=== PATIENT | male | born 1980 | race Caucasian/White ===

== ENCOUNTER 2017-07-15 14:24 | Observation (INO) ==
[2017-07-15 15:28] LABS: Bilirubin,Urine Negative (Negative); Blood,Urine Negative (Negative); Clarity,Urine Clear (Clear); Color,Urine Yellow (Yellow); Glucose,Urine (UA) Normal (Normal); Ketones,Urine Negative (Negative); Leukocyte Esterase,Urine Negative (Negative); Nitrite,Urine Negative (Negative); PH,Urine 7.5 pH Units (5.0-8.0); Protein,Urine Negative (Neg-Trace); Specific Gravity,Urine 1.022 (1.010-1.025); Urobilinogen,Urine Normal (Normal)
[2017-07-15 15:40] LABS: Basophils # 0.1 K/mcL (0.0-0.2); Basophils % 0.8 %; Eosinophils # 0.2 K/mcL (0.0-0.6); Eosinophils % 1.5 %; Hematocrit 36.9 % (37.5-50.1); Hemoglobin 12.4 g/dL (12.9-16.9); Immature Granulocytes % 0.3 % (0-4); Lymphocytes # 1.5 K/mcL (0.6-4.6); Mean Corpuscular HGB Conc 33.6 g/dL (31.6-35.5); Mean Corpuscular Hemoglobin 31.1 pg (28.0-33.3); Mean Corpuscular Volume 92.5 fL (83.0-100.0); Mean Platelet Volume 12.2 fL (9.4-12.4); Monocytes # 0.7 K/mcL (0.0-1.3); Platelet Count 157 K/mcL (140-400); Red Blood Count 3.99 M/mcL (4.19-5.50); Red Cell Distribution Width 13.2 % (11.5-14.5); Segmented Neutrophils % 78.4 %
[2017-07-15 15:56] LABS: Alanine Aminotransferase 17 Units/L (0-55); Albumin 3.9 g/dL (3.5-5.0); Albumin/Globulin Ratio 1.1 (1.1-2.2); Alkaline Phosphatase 58 Units/L (38-126); Aspartate Amino Transferase 25 Units/L (5-34); BUN/Creatinine Ratio 15 (6-26); Bilirubin,Direct 0.1 mg/dL (0.0-0.5); Bilirubin,Indirect 0.3 mg/dL (0.0-1.2); Bilirubin,Total 0.4 mg/dL (0.2-1.2); Blood Urea Nitrogen 23 mg/dL (8-26); Calcium 9.5 mg/dL (8.6-10.8); Carbon Dioxide 23 mEq/L (19-29); Chloride 108 mEq/L (98-109); Globulin 3.6 g/dL (2.4-3.5); Glucose 75 mg/dL (70-99); Lipase 51 Units/L (8-78); Osmolality,Calculated 294 (280-300); Potassium 5.4 mEq/L (3.5-4.5); Sodium 141 mEq/L (136-145); Total Protein 7.5 g/dL (6.0-8.3); eGFR For African Americans > 60 (> 60); eGFR For Non-African Americans 50 (> 60)
--- NOTE | 2017-07-15 17:09 | Emergency Department Note ---
Disposition Clinical Impression: Acute appendicitis Disposition: Admitted As Inpatient Condition: Good Forms: ED Satisfaction Letter, Work/School Release Time of Disposition: 19:13 Abdominal Pain HPI - General Chief Complaint: ED Abdominal Pain Stated Complaint: RLQ pain Time Seen by Provider: 07/15/17 17:08 Source: patient Mode of arrival: ambulatory Limitations: no limitations Nursing Notes Reviewed: Yes Vital Signs Reviewed: Yes - History of Present Illness HPI Narrative: This is a 36-year-old male who presents with right lower quadrant pain starting yesterday. Patient states some loose stools but no obvious diarrhea. Patient denies any black or bloody stools. Patient states nausea but no vomiting. Patient states he was sent here from work due to a rule out appendicitis. Patient states he has never had any abdominal surgeries. Patient states he is not running fevers. Patient has no chest pain or shortness of breath. Pt Subjective Complaint: abdominal pain Onset (ago): day(s) Consistency: constant Location: RLQ Pain Severity: moderate Pain Scale: 7 - Related Data Allergies Allergy/AdvReac Type Severity Reaction Status Date / Time Sulfa (Sulfonamide Allergy Anaphylaxis Verified 07/15/17 14:30 Antibiotics) All systems ED: reviewed and negative except as stated. Constitutional: Denies: fever, chills, weakness, weight change Eyes: Denies: eye pain, eye discharge, vision change ENT ED: Denies: ear pain, throat pain, dental pain, hearing loss, epistaxis, congestion, dysphagia Cardiovascular: Denies: chest pain, palpitations, dyspnea on exertion, edema, syncope Respiratory: Denies: cough, dyspnea, wheezes, hemoptysis, stridor Gastrointestinal: Reports: abdominal pain, nausea. Denies: vomiting, diarrhea, constipation, hematemesis, melena, hematochezia Genitourinary: Denies: urgency, dysuria, frequency, hematuria Musculoskeletal: Denies: back pain, neck pain, arthralgia, myalgia Integumentary: Denies: rash, abrasion, lesions Neurological: Denies: headache, weakness, numbness, paresthesias, confusion, abnormal gait, vertigo Psychiatric: Denies: anxiety, depression, suicidal thoughts, homicidal thoughts , auditory hallucinations, visual hallucinations Endocrine: Denies: fatigue Hematological/Lymphatic: Denies: easy bleeding, easy bruising Allergic/Immunologic: Denies: facial swelling, urticaria Abdominal Pain PMH - Past Medical History Medical history: Reports: no medical history Male Surgical History: Reports: no surgical history Psychiatric history: Reports: no psych history - Social History Smoking status: Never smoker Alcohol use: Reports: rarely Drug use: Reports: none Physical Exam - General Limitations: no limitations General appearance: alert, in no apparent distress - Head Head exam: atraumatic, normocephalic, normal inspection - Eye Eye exam: Present: normal appearance, PERRL, EOMI - ENT ENT exam: normal exam, normal oropharynx, mucous membranes moist - Expanded ENT Exam External ear exam: Present: normal external inspection Mouth exam: Present: normal external inspection Teeth exam: Present: normal inspection Throat exam: Present: normal inspection - Neck Neck exam: Present: normal inspection, full ROM, trachea midline - Chest Chest inspection: Present: normal inspection, symmetric chest wall rise - Respiratory Respiratory exam: Present: normal lung sounds bilaterally - Cardiovascular Cardiovascular exam: Present: regular rate, normal rhythm, normal heart sounds - Abdominal Exam Abdominal exam: Present: soft, tenderness, tenderness at McBurney's Point. Absent: distention, guarding, rebound, rigidity Abdominal tenderness: Present: RLQ - Extremities Exam Extremities exam: Present: normal inspection, full ROM. Absent: tenderness, pedal edema - Expanded Upper Extremity Exam Shoulder exam: Present: normal inspection, full ROM Arm exam: Present: normal inspection, full ROM Elbow exam: Present: normal inspection, full ROM Forearm/Wrist exam: Present: normal inspection, full ROM Hand exam: Present: normal inspection, full ROM Vascular exam: Normal: capillary refill, radial pulse - Expanded Lower Extremity Exam Hip/Pelvis exam: Present: normal inspection, full ROM Upper leg exam: Present: normal inspection, full ROM Knee exam: Present: normal inspection, full ROM Lower leg exam: Present: normal inspection, full ROM Ankle exam: Present: normal inspection, full ROM Foot/toe exam: Present: normal inspection, full ROM Neurovascular/Tendon exam: Absent: motor deficit, sensory deficit, tendon deficit - Back Exam Back exam: Present: normal inspection, full ROM. Absent: tenderness - Neurological Exam Neurological exam: Present: alert, oriented X3 - Expanded Neurological Exam Patient oriented to: Present: person, place, time Coma Scale Eye Opening: Spontaneous Coma Scale Motor Response: Obeys Commands Coma Scale Verbal Response: Oriented Coma Scale Total: 15 - Psychiatric Psychiatric exam: Present: normal affect, normal mood - Skin Skin exam: Present: warm, dry, intact, normal color Course - Consultations Consultation #1: I spoke with Dr. Salvador yun to admit. 19:12. Vital Signs Temperature 97.8 F 07/15/17 14:27 Pulse Rate 84 07/15/17 14:27 Respiratory Rate 18 07/15/17 14:27 Blood Pressure 130/87 07/15/17 14:27 O2 Sat by Pulse Oximetry 94 07/15/17 14:27 Temperature 97.8 F 07/15/17 14:27 Pulse Rate 84 07/15/17 14:27 Respiratory Rate 18 07/15/17 14:27 Blood Pressure 130/87 07/15/17 14:27 O2 Sat by Pulse Oximetry 94 07/15/17 14:27 Oxygen Delivery Oxygen Delivery Room Air Abdominal Pain - Medical Records Medical records reviewed: Yes I reviewed the patient's medical records. - Lab Data Lab results reviewed: Yes I reviewed the patient's lab results. Result diagrams: 07/15/17 15:28 07/15/17 15:28 Lab Results 07/15/17 07/15/17 07/15/17 Range/Units 15:08 15:28 15:28 WBC 11.5 H (4.3-11.1) K/mcL RBC 3.99 L (4.19-5.50) M/mcL Hgb 12.4 L (12.9-16.9) g/dL Hct 36.9 L (37.5-50.1) % MCV 92.5 (83.0-100.0) fL MCH 31.1 (28.0-33.3) pg MCHC 33.6 (31.6-35.5) g/dL RDW 13.2 (11.5-14.5) % Plt Count 157 (140-400) K/mcL MPV 12.2 (9.4-12.4) fL Immature Gran % 0.3 (0-4) % Seg Neutrophils % 78.4 % Lymphocytes % 13.0 % Monocytes % 6.0 % Eosinophils % 1.5 % Basophils % 0.8 % Neutrophils # 9.0 H (1.6-8.9) K/mcL Lymphocytes # 1.5 (0.6-4.6) K/mcL Monocytes # 0.7 (0.0-1.3) K/mcL Eosinophils # 0.2 (0.0-0.6) K/mcL Basophils # 0.1 (0.0-0.2) K/mcL Sodium 141 (136-145) mEq/L Potassium 5.4 H (3.5-4.5) mEq/L Chloride 108 (98-109) mEq/L Carbon Dioxide 23 (19-29) mEq/L BUN 23 (8-26) mg/dL Creatinine 1.57 H (0.72-1.25) mg/dL Est GFR ( Amer) > 60 (> 60) Est GFR (Non-Af Amer) 50 L (> 60) BUN/Creatinine Ratio 15 (6-26) Glucose 75 (70-99) mg/dL Calculated Osmolality 294 (280-300) Calcium 9.5 (8.6-10.8) mg/dL Total Bilirubin 0.4 (0.2-1.2) mg/dL Direct Bilirubin 0.1 (0.0-0.5) mg/dL Indirect Bilirubin 0.3 (0.0-1.2) mg/dL AST 25 (5-34) Units/L ALT 17 (0-55) Units/L Alkaline Phosphatase 58 (38-126) Units/L Serum Total Protein 7.5 (6.0-8.3) g/dL Albumin 3.9 (3.5-5.0) g/dL Globulin 3.6 H (2.4-3.5) g/dL Albumin/Globulin Ratio 1.1 (1.1-2.2) Lipase 51 (8-78) Units/L Urine Color Yellow (Yellow) Urine Clarity Clear (Clear) Urine pH 7.5 (5.0-8.0) pH Units Ur Specific [place] 1.022 (1.010-1.025) Urine Protein Negative (Neg-Trace) mg/dL Urine Glucose (UA) Normal (Normal) mg/dL Urine Ketones Negative (Negative) mg/dL Urine Blood Negative (Negative) Urine Nitrite Negative (Negative) Urine Bilirubin Negative (Negative) Urine Urobilinogen Normal (Normal) mg/dL Ur Leukocyte Esterase Negative (Negative) - Radiology Data Radiology results reviewed: Yes I reviewed the patient's radiology results.
[2017-07-15] MEDS ORDERED: 0.9 % Sodium Chloride 2,000 ML IV SCH (17:15)
[2017-07-15] MEDS ORDERED: 0.9 % Sodium Chloride 1,000 ML ONE (18:08)
[2017-07-15] MEDS: 0.9 % Sodium Chloride 1,000 ML IV SCH (18:09)
[2017-07-15] MEDS ORDERED: Piperacillin/Tazobactam 3.375 GM in D5% in Water 50 ML IVPB ONE (19:13)
[2017-07-15] MEDS ORDERED: *HR* FentaNYL (PF) 100 MCG/2 ML VIAL ONE (19:45)
[2017-07-15] MEDS ORDERED: *HR* Propofol 200 MG/20 ML VIAL IVP ONE (19:45)
[2017-07-15] MEDS ORDERED: Dexamethasone 4 MG/ML VIAL ONE (19:46)
[2017-07-15] MEDS ORDERED: Ondansetron 4 MG/2 ML VIAL ONE (19:46)
[2017-07-15] MEDS ORDERED: Lidocaine -MPF 2% 2 ML VIAL ONE (19:46)
[2017-07-15] MEDS ORDERED: *HR* Succinylcholine 200 MG/10 ML VIAL IVP ONE (19:46)
--- NOTE | 2017-07-15 19:58 | General Surg History&Physical ---
Date of Encounter: 07/15/17 Time of Encounter: 19:30 Assessment and Plan (1) Acute appendicitis Current Visit: Yes Status: Acute The assessment and plan as outlined above was discussed with the patient and/or family members who expressed understanding and agreement. All questions were answered. I discussed the findings of acute appendicitis with the patient and his . Recommended laparoscopic appendectomy on an urgent basis. He understands this and wishes to proceed. We will perform laparoscopic appendectomy as soon as a room becomes available Qualifiers: Acute appendicitis type: with localized peritonitis Qualified Code(s): K35.3 - Acute appendicitis with localized peritonitis History of Present Illness Chief complaint: Abdominal pain HPI: Mr. Davidson is a 36 year old male Developed central abdominal pain earlier today. The pain worsened throughout the day and localized to the right lower quadrant. He had no nausea or vomiting. He had no episodes of diarrhea. There were no episodes of shakes chills or fever. He does have pain with motion. He does have anorexia. He sought evaluation in the emergency department. CAT scan was suggestive of early appendicitis. I personally reviewed the CAT scan images and I feel that the diagnosis of appendicitis is likely. The appendix is swollen with periappendiceal inflammation. He now presents for urgent laparoscopic appendectomy Past Med Surg Social Fam HX - Past Medical History Medical history: no medical history Psychiatric history: no psych history - Social History Smoking Status: Never smoker Smokeless Tobacco Status: No Alcohol use: rarely Drug use: none Medications and Allergies Fexofenadine HCl [Fexofenadine HCl] 180 mg PO DAILY 07/15/17 [History] Mometasone Furoate [Nasonex] 1 spray NS DAILY 07/15/17 [History] 3 Allergy/AdvReac Type Severity Reaction Status Date / Time Sulfa (Sulfonamide Allergy Anaphylaxis Verified 07/15/17 14:30 Antibiotics) Review of Systems All systems PM: A 10-system review of systems was performed and is negative for pertinent findings except as documented above in the HPI. General Surgery Exam Initial Vital Signs Temp Pulse Resp BP Pulse Ox 97.8 F 84 18 130/87 94 07/15/17 14:27 07/15/17 14:27 07/15/17 14:27 07/15/17 14:27 07/15/17 14:27 - General physical appearance well developed, well nourished, no distress - Neck no masses, no bruits, trachea midline, no lymphadectomy, no venous distension - Respiratory normal expansion, normal respiratory effort, clear to percussion, clear to auscultation - Cardiovascular Cardiovascular exam: Present: RRR, 15, 16 - Abdomen Abdomen general surgery: Present: tender, guarding, rebound Abdominal Tenderness: Present: RLQ - Neurologic Present: CN 2-12 grossly intact, normal coordination, normal sensation - Psychiatric Psychiatric general surgery: Present: appropriate, oriented to person, oriented to place, oriented to time, speech is normal, memory intact Results - Labs 07/15/17 15:28 07/15/17 15: Abnormal lab results WBC 11.5 K/mcL (4.3-11.1) H 07/15/17 15: RBC 3.99 M/mcL (4.19-5.50) L 07/15/17 15: Hgb 12.4 g/dL (12.9-16.9) L 07/15/17 15: Hct 36.9 % (37.5-50.1) L 07/15/17 15: Neutrophils # 9.0 K/mcL (1.6-8.9) H 07/15/17 15: Potassium 5.4 mEq/L (3.5-4.5) H 07/15/17 15:28 Creatinine 1.57 mg/dL (0.72-1.25) H 07/15/17 15:28 Est GFR (Non-Af Amer) 50 (> 60) L 07/15/17 15: Globulin 3.6 g/dL (2.4-3.5) H 07/15/17 15:28 All other labs normal. - Imaging CT scan - abdomen: image reviewed (I personally reviewed the CAT scan the abdomen. The patient has periappendiceal inflammation as well as a swollen appendix. Findings are consistent with acute appendicitis)
[2017-07-15] MEDS ORDERED: *HR* Labetalol 20 MG/4 ML SYRINGE IVP PRN (20:01)
[2017-07-15] MEDS ORDERED: Ondansetron 4 MG/2 ML VIAL IVP ONE (20:01)
[2017-07-15] MEDS ORDERED: Albuterol 2.5 MG/3 ML NEBULIZER IH ONE (20:01)
[2017-07-15] MEDS ORDERED: *HR* Promethazine 25 MG/ML VIAL IVP PRN (20:01)
[2017-07-15] MEDS ORDERED: *HR* HYDROmorphone (PF) 1 MG/ML SYRINGE IVP PRN ×2 (20:01→23:19)
--- NOTE | 2017-07-15 20:01 | Anesthesia Evaluation PreOp ---
Date of Encounter: 07/15/17 Time of Encounter: 20:00 - Past History Planned Operation: Lap. 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 Significant HX Other Medical History: Denies Any Significant HX Anesthesia History: No Prior Anesthetic Complications, Past Anesthesia (wisdom teeth) Alcohol Use: rarely Drug use: none Medications and Allergies Fexofenadine HCl [Fexofenadine HCl] 180 mg PO DAILY 07/15/17 [History] Mometasone Furoate [Nasonex] 1 spray NS DAILY 07/15/17 [History] 3 Allergy/AdvReac Type Severity Reaction Status Date / Time Sulfa (Sulfonamide Allergy Anaphylaxis Verified 07/15/17 14:30 Antibiotics) - Meds/Allergy Pre-op Review Medications Reviewed: Yes Allergies Reviewed: Yes Beta Blockers on Current Med List: No Anesthesia Results - Labs 07/15/17 15:28 07/15/17 15:28 Anesthesia Exam O2 Sat Height 1.85 m Weight 92.986 kg O2 Sat by Pulse Oximetry 97 O2 Sat by Pulse Oximetry 94 Vital Signs Temp Pulse Resp BP Pulse Ox 97.8 F 84 18 130/87 94 07/15/17 14:27 07/15/17 14:27 07/15/17 14:27 07/15/17 14:27 07/15/17 14:27 Vital Signs/O2 Sat, Most Current Temp Pulse Resp BP Pulse Ox 97.8 F 71 16 127/88 97 07/15/17 14:27 07/15/17 19:54 07/15/17 19:54 07/15/17 19:54 07/15/17 19:54 Height: 6'1'' Weight: 205# NPO (# of Hours): > 8 hrs Pain Scale: 0 Pain Scale Used: Numeric (1 - 10) - HEENT Pupil (Motor): Pupils equal, EOMI Mallampati: I Teeth: Normal Oral Opening: Greater than 3 - TYING IN MACHINE OPERATOR LOC: Oriented TYING IN MACHINE OPERATOR Motor: Normal RUE, Normal LUE, Normal RLE, Normal LLE, Normal Face TYING IN MACHINE OPERATOR Sensory: Normal: RUE, LUE, RLE, LLE, Face - Cardiac Rhythm: Regular Murmur: None JVD: No Carotid Bruit: No - Pulmonary Breath Sounds: bilateral Clear Respiratory Effort: Symmetrical Anesthesia Assess/Plan ASA Score: 1 Modified [place] Scale for Level of Consciousness: Cooperative, oriented, and tranquil Anesthetic Plan: General Autologous Blood: Yes Monitoring Plan: Standard Monitors Recovery Plan: PACU
[2017-07-15] MEDS ORDERED: CefOXitin 1,000 MG VIAL ONE (21:16)
[2017-07-15] MEDS ORDERED: Neostigmine Methylsulfate 3 MG/3 ML SYRINGE ONE (22:07)
--- NOTE | 2017-07-15 22:23 | Operative Note ---
Date of procedure: 07/15/17 Pre-op diagnosis: Acute appendicitis Post-op diagnosis: same Procedure: Laparoscopic appendectomy Anesthesia: CATHERINE Surgeon: Blaze Franco Estimated blood loss (cc): 10 Specimen: Appendix Condition: stable Disposition: PACU Procedure in Detail: After informed consent the patient was taken to the major operating suite. He is placed in the supine position. Timeout was taken and the patient is identified. Patient was given adequate general anesthetic. The abdomen is prepped and draped in sterile fashion utilizing ChloraPrep standard draping techniques. Timeout was taken patient was identified. I made a vertical midline incision below the umbilicus and placed 2 traction stitches of 0 Vicryl. The abdomen was entered visually. I placed a Bullock trocar. The abdomen was insufflated to 15 mmHg pressure CO2. There were inflammatory changes on the peritoneum in the right lower quadrant. I placed a 5 mm port in the suprapubic area. I placed a 12 mm port in the right upper quadrant. The appendix was acutely inflamed. The appendix was mobilized on the mesial appendix. I created a window between the mesial appendix and base of the cecum. I divided the base of the cecum with a gastrointestinal staple load from the laparoscopic stapler. The appendix was now isolated on the meso appendix. Mesoappendix was divided with the vascular stapler. Hemostasis was excellent. I irrigated with copious amounts of antibiotic containing solution. All staple lines were intact. All trochars were removed. There was no free pus or stool in the abdomen. The appendix was not perforated. Fascia was closed with 0 Vicryl and the skin with 2-0 and 4-0 Vicryl.
--- NOTE | 2017-07-15 23:02 | Anesthesia Evaluation Post Op ---
Date of Encounter: 07/15/17 Time of Encounter: 23:02 - Vital Signs Vital Signs: Vital Signs/O2 Sat, Most Current Temp Pulse Resp BP Pulse Ox 98.4 F 44 16 124/75 95 07/15/17 22:54 07/15/17 22:54 07/15/17 22:54 07/15/17 22:54 07/15/17 22:54 - Lungs Lungs: Clear Ascult./Percussion - Airway Airway: Non-obstructed - Cardiovascular Regular Rate - Mental Status Mental Status: Alert & Oriented, Answers Appropriately - Pain Pain Scale: 4 Pain Scale used: Numeric (1 - 10) - Nausea Vomiting Nausea Vomiting: Not Present - Hydration Hydration: Tolerates oral liquids, Has not voided - Discharge PostOp Status: Transfer Patient to floor
[2017-07-15] MEDS ORDERED: Ondansetron 4 MG/2 ML VIAL IVP PRN (23:19)
[2017-07-15] MEDS ORDERED: 0.9 % Sodium Chloride 1,000 ML IVC SCH (23:19)
[2017-07-16] MEDS: 0.9 % Sodium Chloride 1,000 ML IV SCH (01:16)
[2017-07-16] MEDS: *HR* OxyCODONE/APAP 5/325 TABLET PO PRN ×2 (01:34→06:27)
[2017-07-16] MEDS: Piperacillin/Tazobactam 3.375 GM in D5% in Water 50 ML IVPB SCH ×2 (04:12→11:38)
--- NOTE | 2017-07-16 09:34 | Discharge Summary ---
<Nikkie Toney - Last Filed: 07/16/17 14:59> Date of Encounter: 07/16/17 Time of Encounter: 09:15 - Discharge Diagnosis (1) Acute appendicitis Priority: Primary Status: Resolved Qualifiers: Acute appendicitis type: with localized peritonitis Qualified Code(s): K35.3 - Acute appendicitis with localized peritonitis - Discharge Medications Prescriptions: OxyCODONE/APAP 5/325 [Percocet 5/325 MG] 1 each PO Q6HR PRN #28 tablet PRN Reason: Pain (1-5) Docusate Sodium [Colace] 100 mg PO BID PRN #30 capsule PRN Reason: Constipation Ibuprofen 800 mg PO Q8H #60 tablet Home Medications: Fexofenadine HCl 180 mg PO DAILY 07/15/17 [History] Mometasone Furoate [Nasonex] 1 spray NS DAILY 07/15/17 [History] Docusate Sodium [Colace] 100 mg PO BID PRN #30 capsule 07/16/17 [Rx] Ibuprofen 800 mg PO Q8H #60 tablet 07/16/17 [Rx] OxyCODONE/APAP 5/325 [Percocet 5/325 MG] 1 each PO Q6HR PRN #28 tablet 07/16/17 [Rx] Allergies/Adverse Reactions: 3 Allergy/AdvReac Type Severity Reaction Status Date / Time Sulfa (Sulfonamide Allergy Anaphylaxis Verified 07/15/17 14:30 Antibiotics) General Surgery Exam Initial Vital Signs Temp Pulse Resp BP Pulse Ox 97.8 F 84 18 130/87 94 07/15/17 14:27 07/15/17 14:27 07/15/17 14:27 07/15/17 14:27 07/15/17 14:27 - General physical appearance well developed, well nourished, no distress - Eyes normal ocular movement - ENT normal mucosa, atraumatic, normocephalic - Neck trachea midline, no venous distension - Respiratory normal expansion, normal respiratory effort, clear to auscultation - Cardiovascular Cardiovascular exam: Present: RRR - Abdomen Abdomen general surgery: Present: bowel sounds present, soft, tender (Expected postoperative) - Incision Incision: Present: clean and dry, intact - Integumentary Integumentary general surgery: Present: warm and dry, no abnormal pigmentation - Neurologic Present: CN 2-12 grossly intact, normal coordination, normal sensation - Musculoskeletal Present: normal gait, normal posture - Psychiatric Psychiatric general surgery: Present: appropriate, oriented to person, oriented to place, oriented to time, speech is normal, memory intact Date of admission: 07/15/17 19:30 Primary care physician: PCP NONE Discharging clinician: Blaze Toney) Anticipated date of discharge: 07/16/17 - Patient Status Disposition: Home, Self-Care Condition: Good Functional capacity at discharge: independent ambulation Overall status at discharge: patient is progressing back to baseline - Discharge Instructions Instructions: Laparoscopic Appendectomy (DC) Follow Up With: NONE,PCP [Primary Care Provider] - Kylah Choe CAN CLEANER [Advanced Practice Nurse] - 08/05/17 8:45 am Forms: Inpatient Work/School Release Additional Instructions: General Surgical Discharge Instructions 1. No pushing, pulling, or lifting greater than 15 lbs for two weeks. 2. You may shower beginning today, but no tub baths, soaking, or swimming for 2 weeks. 3. You may resume driving when you are off narcotics and are safe to react in a car. 4. Take ibuprofen every 8 hours for discomfort. If this does not adequately receive your discomfort, you may take oxycodone. Take narcotics as directed. Do not take more narcotics then directed and do not share your narcotics with any other person. Do not drink alcohol while on narcotics. 5. Take stool softeners (Colace) or a water based laxative (Miralax) while taking narcotics. You may hold for loose stools. 6. Report any fevers greater than 100.5F, increase abdominal discomfort, drainage that looks like pus, increased redness or pain at the surgical site, or any vomiting. 7. Report any pain in the calves, shortness of breath, or rapid heartbeat. 8. Follow-up in the office as directed. 9. If you were prescribed antibiotics, do not stop them without talking to your provider. - Diet and Activity Activity: increase activity as tolerated Diet: advance to your usual diet - Hospital Course Hospital course: Mr. Davidson is a 36 year old male presented on 07/15/2017 for complaints of centralized abdominal discomfort that developed earlier in that day. The pain worsened throughout the day and then localized to the right lower quadrant. It was not associated with nausea or vomiting nor diarrhea. He denied fevers or chills. It was aggravated by motion and associated with anorexia. A CT scan was suggestive of early appendicitis and he was therefore taken to the operating room where he underwent an uncomplicated laparoscopic appendectomy with Dr. Franco. The remainder of this hospital course has been unremarkable. He states resolution of his pre-surgical discomfort, is ambulating and voiding without difficulty, is tolerating liquids without nausea or vomiting, and his discomfort is controlled on the current regimen. His vital signs are stable and he is afebrile. We will begin discharge planning within office follow-up in 2 weeks. - Time Spent with Patient Total time spent providing and/or coordinating discharge services: Less than 30 minutes <Blaze Franco - Last Filed: 07/16/17 15:55> Date of Encounter: 07/16/17 - Discharge Diagnosis (1) Acute appendicitis Status: Resolved Qualifiers: Acute appendicitis type: with localized peritonitis Qualified Code(s): K35.3 - Acute appendicitis with localized peritonitis General Surgery Exam Initial Vital Signs Temp Pulse Resp BP Pulse Ox 97.8 F 84 18 130/87 94 07/15/17 14:27 07/15/17 14:27 07/15/17 14:27 07/15/17 14:27 07/15/17 14:27 Date of admission: 07/15/17 19:30 Primary care physician: PCP NONE - Hospital Course Hospital course: Mr. Davidson is a 36 year old male - Time Spent with Patient Total time spent providing and/or coordinating discharge services: - Attending Attestation I have personally performed a face to face evaluation on this patient. I have reviewed and agree with the care plan. History and Exam by me shows: The patient was seen and evaluated on morning rounds. His preoperative pain syndrome is gone. Findings are consistent with acute appendicitis, nonperforated. I would recommend completing his intravenous antibiotics here in the hospital and not continuing antibiotics at home. He should be ready for discharge later today. I will see him next week in the office to return him to full duty Blaze Franco MD FACS
[2017-07-16 10:25] VITALS: BP 116/79
== END 2017-07-16 12:30 | disposition home or self-care (01) ==
LOC: 3ANU 14:24 → EMEROO 14:24 → 3ANU 20:42
PROVIDERS: ADMIT Surgery; ATTEND Surgery

== ENCOUNTER 2021-07-05 09:58 | Observation (INO) ==
[2021-07-05] MEDS ORDERED: Ringers Solution, Lactated 1,000 ML IVC SCH (10:15)
[2021-07-05] MEDS ORDERED: *HR* FentaNYL (PF) 100 MCG/2 ML VIAL ONE (12:12)
[2021-07-05] MEDS ORDERED: *HR* Propofol 200 MG/20 ML VIAL IVP ONE ×2 (12:12→12:15)
[2021-07-05] MEDS ORDERED: Lidocaine -MPF 2% 5 ML VIAL ONE (12:14)
[2021-07-05] MEDS ORDERED: *HR* Succinylcholine 200 MG/10 ML VIAL IVP ONE (12:14)
[2021-07-05] MEDS ORDERED: Ondansetron 4 MG/2 ML VIAL ONE (12:14)
[2021-07-05] MEDS ORDERED: *HR* HYDROMORPHONE 2 MG/ML VIAL ONE (12:52)
[2021-07-05] MEDS ORDERED: Lidocaine/EPI 1:100k 1% 50 ML VIAL ONE (12:54)
[2021-07-05] MEDS ORDERED: Lidocaine -MPF 4% 5 ML AMPUL ONE (12:54)
[2021-07-05] MEDS ORDERED: Acetaminophen IV 1,000 MG/100 ML BAG IVPB ONE (12:55)
[2021-07-05] MEDS ORDERED: Pregabalin 75 MG CAPSULE PO ONE (12:55)
[2021-07-05] MEDS ORDERED: Oxymetazoline Nasal SPRAY BOTTLE 15ML NS ONE (12:55)
[2021-07-05] MEDS ORDERED: Famotidine 20 MG/2 ML VIAL IVP ONE (12:55)
[2021-07-05] MEDS ORDERED: *HR* HYDROmorphone 2 MG TABLET PO PRN (12:55)
[2021-07-05] MEDS ORDERED: Scopolamine Patch 1.5 MG PATCH.TD72 TD ONE (12:55)
[2021-07-05] MEDS ORDERED: *HR* HYDROmorphone (PF) 1 MG/ML SYRINGE IVP PRN (12:55)
[2021-07-05] MEDS ORDERED: *HR* Labetalol 20 MG/4 ML SYRINGE IVP PRN (12:55)
[2021-07-05] MEDS ORDERED: *HR* OxyCODONE Immed Rel 5 MG TABLET PO PRN ×2 (12:55→19:15)
[2021-07-05] MEDS ORDERED: Lidocaine HCL 4 ML Topical Solution (Laryng-O-Jet Kit Sterile Pak) TP ONE (12:58)
[2021-07-05] MEDS ORDERED: EPHEDrine 50 MG/ML VIAL ONE (13:45)
[2021-07-05] MEDS ORDERED: Acetaminophen 325 MG TABLET PO PRN (19:15)
[2021-07-05] MEDS ORDERED: Ondansetron 4 MG/2 ML VIAL IVP PRN (19:15)
[2021-07-05] MEDS ORDERED: Naloxone 0.4 MG/ML INJ IVP PRN (19:15)
[2021-07-06] MEDS: Saline Nasal Spray 44 ML BOTTLE NS SCH ×2 (16:38→19:50)
[2021-07-07] MEDS: Saline Nasal Spray 44 ML BOTTLE NS SCH ×2 (08:58→15:53)
[2021-07-07 14:40] VITALS: BP 126/83; PULSE 67; TEMP 98.9; O2SAT 96
[2021-07-07] MEDS ORDERED: FLU Vac QV 21-22 (6Month+)/PF 0.5 ML SYRINGE IM ONE (17:02)
== END 2021-07-07 17:17 | disposition home or self-care (01) ==
LOC: 3ANU 09:58 → SAMDAY 09:58 → 3ANU 15:37
PROVIDERS: ADMIT Otolaryngology; ATTEND Otolaryngology